=== PATIENT | female | born 1955 | race Caucasian/White ===

== ENCOUNTER 2019-11-11 07:41 | Emergency (ER) | payer BC ==
[~2019-11-11] VITALS: Ht 160 cm; Wt 56.8 kg
--- NOTE | 2019-11-11 08:06 | NUR ---
PT BROUGHT BACK FROM TRIAGE WITH CHIEF COMLPAINT OF HIGH BP AFTER ATTEMPTING TO DECREASE BP MEDICATIONS. PT STATES SHE STOPPED ONE (OF TWO) MEDICATIONS 4 DAYS AGO. PT DENIES CP, SOB, COLLADO, ANY DISCOMFORT. JUST "ANXIOUS THAT IT WAS HIGH". PPE IN PLACE
[2019-11-11] MEDS ORDERED: CHLO25TA PO (08:10)
[2019-11-11] MEDS ORDERED: LISI5TAB7 PO (08:10)
[2019-11-11 08:28] LABS: BASOPHILS # (AUTO) 0.02 x10^3/uL (0-0.1); BASOPHILS % (AUTO) 0 % (0-1); EOSINOPHILS # (AUTO) 0.05 x10^3/uL (0-0.4); EOSINOPHILS % (AUTO) 1 % (1-7); LYMPHOCYTES # (AUTO) 1.06 x10^3/uL (1-3.4); LYMPHOCYTES % (AUTO) 26 % (22-44); MD NO; MEAN CORPUSCULAR HEMOGLOBIN 32.7 pg (27.0-34.8); MEAN CORPUSCULAR HGB CONC 34.3 g/dL (32.4-35.8); MEAN CORPUSCULAR VOLUME 95.5 fL (80-100); MEAN PLATELET VOLUME 8.2 fL (7.4-10.4); MONOCYTES # (AUTO) 0.32 x10^3/uL (0.2-0.8); MONOCYTES % (AUTO) 8 % (2-9); NEUTROPHILS # (AUTO) 2.66 x10^3/uL (1.8-6.8); NEUTROPHILS % (AUTO) 65 % (42-75); PLATELET COUNT 276 x10^3/uL (130-400); RED BLOOD COUNT 4.46 x10^6/uL (3.82-5.3)
[2019-11-11 08:34] LABS: ANION GAP 4 mmol/L (5-15); CALCIUM 8.9 mg/dL (8.5-10.1); CHLORIDE 107 mmol/L (98-107); CREATININE 0.57 mg/dL (0.55-1.02)
[2019-11-11 08:35] LABS: ALANINE AMINOTRANSFERASE 17 U/L (12-78); ALBUMIN 3.6 g/dL (3.4-5.0)
[2019-11-11 08:37] LABS: ALKALINE PHOSPHATASE 50 U/L (45-117); BILIRUBIN,TOTAL 0.4 mg/dL (0.2-1.0)
--- NOTE | 2019-11-11 09:00 | NUR ---
PT RESTING IN BED, NO COMPLAINTS AT THIS TIME.
[2019-11-11 09:29] VITALS: BP 134/84
--- NOTE | 2019-11-11 09:31 | NUR ---
STEADY AMBULATION TO BATHROOM
--- NOTE | 2019-11-11 10:09 | NUR ---
[employer] LAW AT BEDSIDE TO DISCUSS POC. DISCHARGE INSTRUCTIONS REVIEWED
== END 2019-11-11 10:32 | disposition home or self-care (01) ==
LOC: ED 08:16
DX: I10 Essential (primary) hypertension (principal)
CPT/HCPCS: 36415; 80053; 85025; 93005; 99284